=== PATIENT | female | born 1950 | race Caucasian/White ===

== ENCOUNTER → 2017-06-18 | Outpatient (CLI) | payer BC ==
--- NOTE | 2017-06-18 17:26 | WOMENS IMAGING REPORT ---
EXAM DESCRIPTION: BILAT SCREENING MAMMO W/CAD COMPLETED DATE/TIME: 06/18/2017 11:14 am REASON FOR STUDY: SCREENING MAMMO Z12.31 ENCNTR SCREEN MAMMOGRAM FOR MALIGNANT NEOPLASM OF SRINIVAS COMPARISON: Multiple since 2011 TECHNIQUE: Standard craniocaudal and mediolateral oblique views of each breast recorded using digita l acquisition. LIMITATIONS: None. FINDINGS: Findings present which are benign by mammographic criteria. No suspicious masses, calcifi cations or architectural distortion. Pertinent benign findings: Asymmetrically dense fibroglandular tissue left breast upper outer quadran t with biopsy clip, stable benign bilateral breast subcentimeter nodules Read with the assistance of CAD. .[facility] - R2 Cenova Version 1.3 .[facility] - R2 Cenova Version 1.3 .[facility] - R2 Cenova Version 2.4 .[facility] - R2 Cenova Version 2.4 .[facility] BEDS AT THE [facility] - R2 Nutrition Professor Version 9.2 Benign mammographic findings may include one or more of the following: Smooth masses, popcorn/rim/co arse calcifications, asymmetries, post-procedure changes, and lesions with long-standing stability. IMPRESSION: BENIGN MAMMOGRAPHIC FINDINGS. BIRADS 2 BREAST DENSITY: b. There are scattered areas of fibroglandular density. BIRAD: 2 BENIGN FINDING(S) RECOMMENDATION: ROUTINE SCREENING Please consider bilateral screening tomosynthesis in June 2018 COMMENT: The patient has been notified of the results by letter per SA requirements. Additional no tification policies are in place for contacting patient with suspicious or incomplete findings. Quality ID #[id number]: The [employer] recommends an annual screening mammogram for women aged 40 years or over. This facility utilizes a reminder system to ensure that all patients receive reminder letters, and/or direct phone calls for appointments. This includes reminders for routine scr eening mammograms, diagnostic mammograms, or other Breast Imaging Interventions when appropriate. Th is patient will be placed in the appropriate reminder system. The [employer] (ACR) has developed recommendations for screening MRI of the breast s in certain patient populations, to be used in conjunction with mammography. Breast MRI surveillanc e may be appropriate for women with more than 20% lifetime risk of developing breast cancer as deter mined by genetic testing, significant family history of the disease, or history of mantle radiation f or Hodgkins Disease. ACR Practice Guidelines 2008. TECHNICAL DOCUMENTATION: FINDING NUMBER: (1) ASSESSMENT: (1) JOB ID: [id number] [employer]- All Rights Reserved
== END ==
LOC: WI 10:54
PROVIDERS: ATTEND Nurse Practitioner
DX: Z12.31 Encounter for screening mammogram for malignant neoplasm of breast (principal)
CPT/HCPCS: 77067; G0202

== ENCOUNTER → 2018-05-05 | Outpatient (CLI) | payer BC ==
--- NOTE | 2018-05-05 19:50 | XCELERA REPORT ---
[address] [place] [facility] [address] Lower Extremity Venous Evaluation Procedure: Color flow and duplex imaging of the veins of the right lower extremity as well as the left Common Femoral vein. Right Sided Venous Evaluation Abnormal vessel filling, echo lucent,no compression or Colour flow in the distal Femoral, Popliteal and Posterior Tibial veins. Critical Findings Preliminary result relayed to provider, with the understanding that the patient was going to stary oral anticoagulation. Interpretation Summary Positive for extensive, acute Deep venous thrombosis in the right Femoral, Popliteal and Posterior Tibial veins. Name: TAI HECK Age: 67 yrs Gender: Female : 1950 Patient Status: Outpatient Patient Location: Study Date: 05/05/2018 03:47 PM Reason For Study: RLE SWELLING Ordering Physician: ADONAY FAJARDO Performed By: Salvador Jordan : ADONAY FAJARDO > Simon Kim
== END ==
LOC: SP 14:32
PROVIDERS: ATTEND Family Medicine
DX: R60.0 Localized edema (principal)
CPT/HCPCS: 93971

== ENCOUNTER → 2018-12-02 | Outpatient (CLI) | payer BC ==
--- NOTE | 2018-12-03 09:09 | WOMENS IMAGING REPORT ---
EXAM DESCRIPTION: BILAT SCREENING MAMMO W/CAD COMPLETED DATE/TIME: 12/02/2018 10:53 am REASON FOR STUDY: Z12.31 ROUTINE BILATERAL SCREENING Z12.31 ENCNTR SCREEN MAMMOGRAM FOR MALIGNANT N EOPLASM OF SRINIVAS COMPARISON: Multiple since 2011 TECHNIQUE: Standard craniocaudal and mediolateral oblique views of each breast recorded using [employer] l acquisition. LIMITATIONS: None. FINDINGS: Findings present which are benign by mammographic criteria. No suspicious masses, calcifi cations or architectural distortion. Pertinent benign findings: Biopsy clip in left breast upper outer quadrant benign asymmetrically den se fibroglandular tissue Read with the assistance of CAD. Benign mammographic findings may include one or more of the following: Smooth masses, popcorn/rim/co arse calcifications, asymmetries, post-procedure changes, and lesions with long-standing stability. IMPRESSION: BENIGN MAMMOGRAPHIC FINDINGS. BIRADS 2 BREAST DENSITY: b. There are scattered areas of fibroglandular density. BIRAD: 2 BENIGN FINDING(S) RECOMMENDATION: ROUTINE SCREENING COMMENT: The patient has been notified of the results by letter per SA requirements. Additional no tification policies are in place for contacting patient with suspicious or incomplete findings. Quality ID #[id number]: The [employer] recommends an annual screening mammogram for women aged 40 years or over. This facility utilizes a reminder system to ensure that all patients receive reminder letters, and/or direct phone calls for appointments. This includes reminders for routine scr eening mammograms, diagnostic mammograms, or other Breast Imaging Interventions when appropriate. Th is patient will be placed in the appropriate reminder system. TECHNICAL DOCUMENTATION: FINDING NUMBER: (1) ASSESSMENT: (1) JOB ID: [id number] [employer]- All Rights Reserved Reading location - IP/workstation name: [facility]-
== END ==
LOC: WI 10:25
PROVIDERS: ATTEND Physician Assistant Medical
DX: Z12.31 Encounter for screening mammogram for malignant neoplasm of breast (principal)
CPT/HCPCS: 77067

== ENCOUNTER → 2020-04-26 | Outpatient (CLI) | payer BC ==
--- NOTE | 2020-04-27 16:44 | WOMENS IMAGING REPORT ---
EXAM DESCRIPTION: BILAT SCREENING MAMMO W/CAD IMAGES COMPLETED DATE/TIME: 04/26/2020 12:30 pm REASON FOR STUDY: Z12.31 ENCOUNTER FOR SCREENING MAMMOGRAM FOR MALIGNANT NEOPLASM OF BREAST Z12.31 ENCNTR SCREEN MAMMOGRAM FOR MALIGNANT NEOPLASM OF SRINIVAS COMPARISON: Multiple since 2013 EXAM PARAMETERS: Standard craniocaudal and mediolateral oblique views of each breast recorded using digital acquisition. Read with the assistance of CAD. .[facility] - R2 [employer]enActionRun Version 1.3 LIMITATIONS: None. FINDINGS: No suspicious masses, suspicious calcifications or architectural distortion. No areas of c oncern. Old biopsy clip left breast upper outer quadrant. IMPRESSION: NEGATIVE MAMMOGRAM. BIRADS 1 BREAST DENSITY: a. The breasts are almost entirely fatty. BIRAD: ASSESSMENT: 1 NEGATIVE RECOMMENDATION: ROUTINE SCREENING Please continue yearly bilateral screening mammography/tomosynthesis in April 2021 COMMENT: The patient has been notified of the results by letter per MQSA requirements. Additional no tification policies are in place for contacting patient with suspicious or incomplete findings. Quality ID #[id number]: The [employer] recommends an annual screening mammogram for women aged 40 years or over. This facility utilizes a reminder system to ensure that all patients receive reminder letters, and/or direct phone calls for appointments. This includes reminders for routine scr eening mammograms, diagnostic mammograms, or other Breast Imaging Interventions when appropriate. Th is patient will be placed in the appropriate reminder system. TECHNICAL DOCUMENTATION: FINDING NUMBER: (1) ASSESSMENT: (1) JOB ID: [id number] 2010 [employer]- All Rights Reserved Reading location - IP/workstation name: [facility]
== END ==
LOC: WI 10:48
PROVIDERS: ATTEND Physician Assistant Medical
DX: Z12.31 Encounter for screening mammogram for malignant neoplasm of breast (principal)
CPT/HCPCS: 77067